=== PATIENT | female | born 1930 | race African-American/Black ===

== ENCOUNTER 2017-03-10 22:23 | Emergency (ER) | payer OTHER ==
[~2017-03-10] VITALS: Ht 165.1 cm; Wt 109.0 kg
[~2017-03-10 22:23] MED LIST: ATEN-42 PO; ATOR20TA65 PO; CLIN-79 PO; CLOP75TA2 PO; FURO-151 PO; HYDR-3511 PO; INS7030 SUBCUT; NEOAPJ PO; PENT400T29 PO; POTA20TA34 PO
[2017-03-10] MEDS ORDERED: NITROGLYCERIN OINT 1GM/INCH UDPKT TD STA (22:50)
[2017-03-10 23:11] LABS: EOSINOPHILS % 3.1 % (0.0-5.0); HEMOGLOBIN. 13.6 g/dL (12.0-16.0); MEAN CORPUSCULAR HEMOGLOBIN 30.7 pg (28.0-32.0); MEAN CORPUSCULAR HGB CONC 32.4 g/dL (31.0-37.0); MEAN CORPUSCULAR VOLUME 94.6 fL (81.0-99.0); MONOCYTES % 12.3 % (2.0-8.0); NEUTROPHILS % 53.6 % (40.0-76.0); PLATELET 182 x1000/uL (130-400); RED BLOOD CELL COUNT 4.44 mill/uL (4.2-5.4); RED CELL DISTRIBUTION WIDTH 14.2 % (11.6-14.6); WHITE BLOOD COUNT 5.6 x1000/uL (4.5-11.0)
[2017-03-10 23:15] LABS: CHLORIDE 111 mEq/L (98-107); INDEX HEMOLYSI 3 (1-3); INDEX ICTERIC 1 (1-4); INDEX LIPEMIC 1 (1-3)
[2017-03-10 23:18] LABS: PARTIAL THROMBOPLASTIN TIME 22.9 sec (24.0-34.0)
[2017-03-10 23:26] LABS: ALANINE AMINOTRANSFERASE 16 IU/L (13-61); ALBUMIN 3.6 g/dL (3.4-5.0); ANION GAP 13; CALCIUM 10.9 mg/dL (8.5-10.1); CARBON DIOXIDE 24 mEq/L (21-32); NT PRO B-TYPE NATRIURETIC PEP 1361 pg/mL (5-125); UREA NITROGEN BLOOD 26 mg/dL (7-21); eGFR 57 mL/min (>60)
[2017-03-11] MEDS ORDERED: FUROSEMIDE 40MG/4ML VIAL IVP ONE (00:15)
[2017-03-11 01:45] VITALS: BP 222/83
[2017-03-11] MEDS ORDERED: HYDRALAZINE 20MG/ML VIAL IV NR (02:00)
[2017-03-11] MEDS ORDERED: HYDRALAZINE (NEO) 1MG/ML IV ONE (02:00)
== END 2017-03-11 02:30 | disposition short-term general hospital (02) ==
LOC: ER 22:23
DX: R06.02 Shortness of breath (principal); I10 Essential (primary) hypertension; E11.9 Type 2 diabetes mellitus without complications; I50.9 Heart failure, unspecified; Z88.0 Allergy status to penicillin; Z79.4 Long term (current) use of insulin; Z90.710 Acquired absence of both cervix and uterus; Z98.890 Other specified postprocedural states
CPT/HCPCS: 36415; 71010; 80053; 83880; 85025; 85610; 85730; 93005; 96374; 96375; 99285; J0360; J1940

== ENCOUNTER 2017-07-11 03:22 | Emergency (ER) | payer OTHER ==
[~2017-07-11] VITALS: Ht 167.6 cm; Wt 118.0 kg
[~2017-07-11 03:22] MED LIST changes: -CLIN-79 PO; +CLIN300C11 PO; +CLOP75TA16 PO; -CLOP75TA2 PO
[2017-07-11 05:50] LABS: BASOPHILS % 1.1 % (0.0-2.0); EOSINOPHILS % 3.4 % (0.0-5.0); HEMATOCRIT. 36.1 % (36.0-48.0); HEMOGLOBIN. 12.4 g/dL (12.0-16.0); LYMPHOCYTES % 30.9 % (20.0-50.0); MEAN CORPUSCULAR HEMOGLOBIN 32.3 pg (28.0-32.0); MEAN CORPUSCULAR VOLUME 93.9 fL (81.0-99.0); MEAN PLATELET VOLUME 9.5 fl (7.4-10.4); NEUTROPHILS % 53.6 % (40.0-76.0); PLATELET 182 x1000/uL (130-400); RED BLOOD CELL COUNT 3.85 mill/uL (4.2-5.4)
[2017-07-11 06:11] LABS: PROTHROMBIN TIME 10.7 sec (9.4-11.6)
[2017-07-11] MEDS ORDERED: VANCOMYCIN 1 G PREMIX 200 ML IV ONE (08:00)
[2017-07-11] MEDS ORDERED: DEXT 5%/0.45% NACL 1000ML 1,000 ML IV SCH (10:20)
[2017-07-11] MEDS ORDERED: MAGNESIUM/ALUMINUM HYDROXIDE/SIMETHICONE 30ML UDC PO PRN (10:30)
[2017-07-11] MEDS ORDERED: ENOXAPARIN 40MG/0.4ML SYR SUBCUT SCH ×2 (10:30→18:45)
[2017-07-11] MEDS ORDERED: CLONIDINE 0.1MG TABLET PO PRN (10:30)
[2017-07-11] MEDS ORDERED: ACETAMINOPHEN 325MG TABLET PO PRN (10:30)
[2017-07-11] MEDS ORDERED: DOCUSATE SODIUM 100MG CAPSULE PO PRN (10:30)
[2017-07-11] MEDS ORDERED: ONDANSETRON HCL 4MG/2ML VIAL IV PRN (10:30)
[2017-07-11] MEDS ORDERED: MORPHINE SULFATE 4 MG/ML CPJ (NOT FOR IM USE) IV PRN (10:30)
[2017-07-11] MEDS ORDERED: HYDROCODONE/ACETAMINOPHEN 5/325MG TABLET PO PRN (10:30)
[2017-07-11 10:54] LABS: TROPONIN I 0.18 ng/mL (0.00-0.04)
[2017-07-11 10:58] LABS: CREATINE KINASE MB FRACTION 4.2 ng/mL (0.5-3.6)
[2017-07-11] MEDS ORDERED: HYDRALAZINE HCL 50MG TABLET PO SCH (14:00)
[2017-07-11 16:25] VITALS: BP 195/88
[2017-07-11] MEDS ORDERED: HYDRALAZINE HCL 50MG TABLET PO NR (17:00)
[2017-07-11] MEDS ORDERED: ATORVASTATIN CALCIUM 20MG TABLET PO SCH (21:00)
[2017-07-12] MEDS ORDERED: FUROSEMIDE 40MG TABLET PO SCH (09:00)
[2017-07-12] MEDS ORDERED: LOSARTAN POTASSIUM 50 MG TABLET PO SCH (09:00)
[2017-07-12] MEDS ORDERED: CLOPIDOGREL 75MG TABLET PO SCH (09:00)
== END 2017-07-11 18:42 | disposition short-term general hospital (02) ==
LOC: ER 03:22 → SUPCPDRO 09:59 → CANRESERV 18:11 → ENRESERV 18:11 → ER 18:42 → CANBEDREQ 20:57
DX: S09.90XA Unspecified injury of head, initial encounter (principal); W18.39XA Other fall on same level, initial encounter; Y93.89 Activity, other specified; Y92.090 Kitchen in other non-institutional residence as the place of occurrence of the external cause; I11.0 Hypertensive heart disease with heart failure; I50.9 Heart failure, unspecified; R00.1 Bradycardia, unspecified; E86.0 Dehydration; E83.52 Hypercalcemia; E78.5 Hyperlipidemia, unspecified; R79.89 Other specified abnormal findings of blood chemistry; L03.116 Cellulitis of left lower limb; G89.29 Other chronic pain; M79.605 Pain in left leg; E11.9 Type 2 diabetes mellitus without complications; Z88.0 Allergy status to penicillin; Z79.4 Long term (current) use of insulin; Z79.899 Other long term (current) drug therapy; Z95.0 Presence of cardiac pacemaker
CPT/HCPCS: 36415; 70450; 71010; 73521; 73552; 73562; 73590; 73610; 73630; 80048; 82553; 82962; 83735; 83880; 84443; 84484; 85025; 85610; 85730; 93005; 96361; 96365; 99285; J3370

== ENCOUNTER 2019-08-02 14:39 | Emergency (ER) | payer OTHER ==
[~2019-08-02] VITALS: Ht 162.6 cm; Wt 70.0 kg
[~2019-08-02 14:39] MED LIST changes: -CLOP75TA16 PO; +CLOP75TA4 PO; +ETOMIDATE 2MG/ML 10ML VIAL IV ONE; -HYDR-3511 PO; +HYDR-3512 PO; +SUCCINYLCHOLINE CHLORIDE 200MG/10ML IV ONE
[2019-08-02] MEDS ORDERED: CEFEPIME 1,000 MG in DEXTROSE 5% WATER 50 ML IV STA (14:57)
[2019-08-02] MEDS ORDERED: VANCOMYCIN 1 G PREMIX 200 ML IV ONE (15:00)
[2019-08-02] MEDS ORDERED: SODIUM CHLORIDE 0.9% 1000ML BAG (SEPSIS BOLUS) IV ONE (15:00)
[2019-08-02 15:10] LABS: HEMATOCRIT. 47.9 % (36.0-48.0); HEMOGLOBIN. 15.6 g/dL (12.0-16.0); MEAN CORPUSCULAR HEMOGLOBIN 30.7 pg (28.0-32.0); MEAN CORPUSCULAR VOLUME 94.2 fL (81.0-99.0); MEAN PLATELET VOLUME 10.3 fl (7.4-10.4); PLATELET 101 x1000/uL (130-400); RED BLOOD CELL COUNT 5.08 mill/uL (4.2-5.4); RED CELL DISTRIBUTION WIDTH 16.3 % (11.6-14.6)
[2019-08-02 15:14] LABS: INR 1.4; PROTHROMBIN TIME 14.2 sec (9.6-11.0)
[2019-08-02 15:17] LABS: CHLORIDE 111 mEq/L (98-107)
[2019-08-02 15:39] LABS: PLATELET ESTIMATE DECREASED
[2019-08-02] MEDS ORDERED: ASPIRIN 300MG SUPP PR ONE (16:15)
[2019-08-02] MEDS ORDERED: SODIUM BICARBONATE 8.4% 1 MEQ/ML 50ML SYR IV ONE (16:30)
[2019-08-02 16:36] LABS: CLARITY URINE CLOUDY (CLEAR); COLOR URINE YELLOW (YELLOW); KETONES URINE NEGATIVE (NEGATIVE); LEUKOCYTE ESTERASE URINE NEGATIVE (NEGATIVE); NITRITE URINE NEGATIVE (NEGATIVE); OCCULT BLOOD URINE NEGATIVE (NEGATIVE); PROTEIN URINE 1+ (NEGATIVE); SPECIFIC GRAVITY URINE 1.015 (1.005-1.030); UROBILINOGEN URINE 0.2 E.U./dL (0.2-1.0)
[2019-08-02] MEDS ORDERED: EPINEPHRINE 0.1MG/ML (1:10,000) 10ML SYR ONE ×2 (16:40→16:48)
[2019-08-02] MEDS ORDERED: SODIUM BICARBONATE 150 MEQ in DEXTROSE 5% WATER 1,000 ML IV SCH (16:45)
[2019-08-02] MEDS ORDERED: NOREPINEPHRINE 4MG/250ML PMX 250 ML IV ONE (16:54)
[2019-08-02 16:59] VITALS: BP 0/0
[2019-08-02] MEDS ORDERED: MAGNESIUM 1 G PREMIX 200 ML IV ONE (17:00)
== END 2019-08-02 18:55 | disposition expired ==
LOC: ER 14:39 → CANBEDREQ 17:27 → ER 18:55
DX: R65.21 Severe sepsis with septic shock (principal); J96.01 Acute respiratory failure with hypoxia; I46.9 Cardiac arrest, cause unspecified; D72.829 Elevated white blood cell count, unspecified; E87.5 Hyperkalemia; R94.39 Abnormal result of other cardiovascular function study; E88.09 Other disorders of plasma-protein metabolism, not elsewhere classified; N28.9 Disorder of kidney and ureter, unspecified; J44.9 Chronic obstructive pulmonary disease, unspecified; E11.9 Type 2 diabetes mellitus without complications; I11.0 Hypertensive heart disease with heart failure; I50.9 Heart failure, unspecified; Z88.0 Allergy status to penicillin; Z91.040 Latex allergy status; Z79.4 Long term (current) use of insulin; Z90.710 Acquired absence of both cervix and uterus; Z95.0 Presence of cardiac pacemaker
CPT/HCPCS: 31500; 36415; 70450; 71045; 80053; 81003; 83605; 84145; 84484; 85025; 85610; 87040; 87086; 92950; 94002; 96365; 96368; 99291; J0330; J0692; J3370; J3475; J3490; J7030; J7060; J7070